=== PATIENT | female | born 1985 | race Caucasian/White ===

== ENCOUNTER 2017-09-30 22:41 | Emergency (ER) | payer OTHER ==
[~2017-09-30] VITALS: Ht 157.5 cm; Wt 84.8 kg
[~2017-09-30 22:41] MED LIST: ACET325 PO; ALBU4; ALBU90OI; ALBU90OI INH; ALBU90OI61 INH; AMOCLA500 PO; AMOX500 PO; Adipex-P37.5 MG PO; Amoxicillin500 MG PO; Augmentin 500-1 EACH PO; Augmentin 875-1 EACH PO; BC PILLS; CARB10OTL AD; CEPH500 PO; CODACE30 PO; CYCL10 PO; Cyclobenzaprine5 MG PO; DIAZ5 PO; FLUO10; FLUO10 PO; FLUO20 PO; FLUSAL1005; FLUSAL1005 INH; HYDACE5 PO; HYDACE5325 PO; Hydrocodone-Ap1 EA23 PO; IBUP200; IBUP600 PO; IBUP800 PO; IRON256 MG; METO10 PO; MONT10T; MONT10T PO; MONTELUKAST SOD10 MG PO; MULVITMINE PO; MUPI2TC TOP; NAPR550 PO; Naprosyn500 MG PO; Norco 5-325 Ta1 EACH PO; ONDA8ODT MM; OXYACE5T PO; PENVK500 PO; PRENZ PO; PROC10 PO; PROM25 PO; Phentermine HCl30 MG PO; Prednisone20 MG PO; RANI150 PO; RXHYDACE PO; RXONDA4ODT MM; SULI150 PO; SULTRIDS PO; Tamiflu75 MG PO; Ultram50 MG PO; Veetids 500500 MG PO; Zithromax250 MG PO; Zofran Odt4 MG SL
== END 2017-09-30 23:46 | disposition left against medical advice (07) ==
LOC: ER 22:41
DX: K08.89 Other specified disorders of teeth and supporting structures (principal); Z88.5 Allergy status to narcotic agent; Z79.899 Other long term (current) drug therapy; Z79.2 Long term (current) use of antibiotics
CPT/HCPCS: 99282; J1885

== ENCOUNTER 2017-10-21 21:38 | Emergency (ER) | payer OTHER ==
[~2017-10-21] VITALS: Ht 157.5 cm; Wt 84.8 kg
[2017-10-21] MEDS ORDERED: Adipex-P37.5 MG PO (23:35)
== END 2017-10-22 01:50 | disposition home or self-care (01) ==
LOC: ER 21:38
DX: S30.0XXA Contusion of lower back and pelvis, initial encounter (principal); Z88.5 Allergy status to narcotic agent; Z79.899 Other long term (current) drug therapy; W10.9XXA Fall (on) (from) unspecified stairs and steps, initial encounter
CPT/HCPCS: 72100; 72220; 99283; J1885

== ENCOUNTER 2018-02-21 04:00 | Emergency (ER) | payer OTHER ==
[~2018-02-21] VITALS: Ht 157.5 cm; Wt 83.9 kg
[2018-02-21] MEDS ORDERED: Advair Hfa 230-12 GM INH (04:16)
[2018-02-21] MEDS ORDERED: MONT10T PO (04:17)
[2018-02-21] MEDS ORDERED: IBUP600 PO (04:44)
[2018-02-21] MEDS ORDERED: Cleocin HCl300 MG PO (04:44)
== END 2018-02-21 05:00 | disposition home or self-care (01) ==
LOC: ER 04:00
DX: K02.9 Dental caries, unspecified (principal); J45.909 Unspecified asthma, uncomplicated; Z88.5 Allergy status to narcotic agent; Z79.899 Other long term (current) drug therapy; Z79.51 Long term (current) use of inhaled steroids
CPT/HCPCS: 96372; 99282; J1885

== ENCOUNTER 2018-09-07 04:05 | Emergency (ER) | payer OTHER ==
[~2018-09-07] VITALS: Ht 157.5 cm; Wt 81.7 kg
[~2018-09-07 04:05] MED LIST changes: +Advair Hfa 230-12 GM INH; +Cleocin HCl300 MG PO
[2018-09-07] MEDS ORDERED: Augmentin 875-1 EACH PO (04:53)
== END 2018-09-07 05:05 | disposition home or self-care (01) ==
LOC: ER 04:05
DX: K08.89 Other specified disorders of teeth and supporting structures (principal); J45.909 Unspecified asthma, uncomplicated; Z88.5 Allergy status to narcotic agent; Z79.899 Other long term (current) drug therapy
CPT/HCPCS: 96372; 99282-25; J1885

== ENCOUNTER 2019-03-16 10:52 | Emergency (ER) | payer OTHER ==
[~2019-03-16] VITALS: Ht 157.5 cm; Wt 88.5 kg
[2019-03-16 11:29] LABS: BASOPHILS ABSOLUTE AUTO 0.04 K/mm3 (0.00-0.23); BASOPHILS PERCENT AUTO 0 % (0-2); EOSINOPHILS ABSOLUTE AUTO 0.16 K/mm3 (0.00-0.68); EOSINOPHILS PERCENT AUTO 1 % (0-6); Hematocrit 35.3 % (33.0-51.0); Hemoglobin 11.2 g/dL (11.5-16.0); IMMATURE GRAN ABSOLUTE AUTO 0.04 K/mm3 (0.00-0.10); IMMATURE GRAN PERCENT AUTO 0 % (0-1); LYMPHOCYTES PERCENT AUTO 22 % (21-46); MONOCYTES ABSOLUTE AUTO 0.78 K/mm3 (0.16-1.47); MONOCYTES PERCENT AUTO 7 % (4-13); Mean Corpuscular HGB 26.5 pg (26.0-34.0); Mean Corpuscular HGB Conc 31.7 g/dL (31.5-36.5); Mean Corpuscular Volume 84 fL (80-100); Mean Platelet Volume 9.6 fL (9.1-12.4); NEUTROPHILS ABSOLUTE AUTO 7.75 K/mm3 (1.96-9.15); NEUTROPHILS PERCENT AUTO 69 % (41-73); Platelet Count 375 K/mm3 (150-400); RDW Coefficient Variation 15.3 % (11.7-14.2); RDW Standard Deviation 46.1 fL (35.1-46.3); Red Blood Cell Count 4.22 M/mm3 (3.80-5.20); White Blood Cell Count 11.27 K/mm3 (4.00-11.30)
[2019-03-16 12:01] LABS: Alanine Aminotransfer (ALT/SGP 22 U/L (12-78); Albumin, Blood 3.6 g/dL (3.4-5.0); Albumin/Globulin Ratio 0.9 (0.8-1.8); Alk Phos 83 U/L (50-136); Anion Gap 7 mmol/L (6-16); Aspartate Aminotrans (AST/SGOT 12 U/L (12-37); Bilirubin, Total 0.4 mg/dL (0.1-1.0); Blood Urea Nitrogen 8 mg/dL (8-24); Bun/Creatinine Ratio 9.6 (12.0-20.0); CO2, Blood 26 mmol/L (21-32); Calcium, Blood 8.8 mg/dL (8.5-10.1); Chloride, Blood 105 mmol/L (98-108); Creatinine, Blood 0.83 mg/dL (0.40-1.00); Glomerular Filtration Rate >60 (60-); Glucose, Blood 104 mg/dL (70-99); Potassium, Blood 3.9 mmol/L (3.5-5.5); Sodium, Blood 138 mmol/L (136-145); Total Protein, Blood 7.6 g/dL (6.4-8.2)
[2019-03-16 12:12] LABS: Beta HCG, Quantitative, Serum 7168 mIU/mL (0-3)
== END 2019-03-16 13:20 | disposition home or self-care (01) ==
LOC: ER 10:52
PROVIDERS: Physician Assistant
DX: O20.0 Threatened abortion (principal); Z88.5 Allergy status to narcotic agent; Z79.899 Other long term (current) drug therapy; J45.909 Unspecified asthma, uncomplicated
CPT/HCPCS: 36415; 76801; 76817; 80053; 84702; 85025; 86900; 86901; 99284-25

== ENCOUNTER 2019-10-25 12:54 | Emergency (ER) | payer OTHER ==
[~2019-10-25] VITALS: Ht 157.5 cm; Wt 124.7 kg
[2019-10-25] MEDS ORDERED: Amoxicillin875 MG PO (13:33)
== END 2019-10-25 13:38 | disposition home or self-care (01) ==
LOC: ER 12:54
DX: K02.9 Dental caries, unspecified (principal); J45.909 Unspecified asthma, uncomplicated; Z88.2 Allergy status to sulfonamides; Z79.51 Long term (current) use of inhaled steroids
CPT/HCPCS: 99282

== ENCOUNTER 2019-11-01 21:56 | Emergency (ER) | payer OTHER ==
[~2019-11-01] VITALS: Ht 157.5 cm; Wt 81.7 kg
[~2019-11-01 21:56] MED LIST changes: +Amoxicillin875 MG PO
[2019-11-01] MEDS ORDERED: Ventolin/Prove6.7 GM INH (22:56)
== END 2019-11-01 23:28 | disposition home or self-care (01) ==
LOC: ER 21:56
DX: K08.89 Other specified disorders of teeth and supporting structures (principal); J45.909 Unspecified asthma, uncomplicated; Z88.5 Allergy status to narcotic agent; Z79.899 Other long term (current) drug therapy
CPT/HCPCS: 96372; 99282-25; J1885

== ENCOUNTER 2019-11-10 20:16 | Emergency (ER) | payer OTHER ==
[~2019-11-10] VITALS: Ht 157.5 cm; Wt 79.4 kg
[~2019-11-10 20:16] MED LIST changes: +Ventolin/Prove6.7 GM INH
== END 2019-11-10 21:44 | disposition home or self-care (01) ==
LOC: ER 20:16
DX: G89.18 Other acute postprocedural pain (principal); K13.79 Other lesions of oral mucosa; K08.89 Other specified disorders of teeth and supporting structures; J45.909 Unspecified asthma, uncomplicated; Z88.5 Allergy status to narcotic agent; Z79.899 Other long term (current) drug therapy
CPT/HCPCS: 99282